=== PATIENT | male | born 1945 ===

== ENCOUNTER 2020-08-28 08:35 | Outpatient (CLI) | payer OTHER | END 2020-08-28 15:11 | disposition home or self-care (01) | LOC: SONOGRAMA 08:35 | PROVIDERS: ATTEND Internal Medicine Cardiovascular Disease | DX: K76.0 Fatty (change of) liver, not elsewhere classified (principal); R10.84 Generalized abdominal pain ==

== ENCOUNTER → 2021-09-27 | Outpatient (CLI) | payer OTHER | END | disposition home or self-care (01) | LOC: RAD 11:20 | PROVIDERS: ATTEND Internal Medicine Cardiovascular Disease | DX: M79.641 Pain in right hand (principal); M79.642 Pain in left hand; M10.9 Gout, unspecified; M12.9 Arthropathy, unspecified ==

== ENCOUNTER 2023-09-24 11:56 | Outpatient (CLI) | payer OTHER | END 2023-09-24 12:16 | disposition home or self-care (01) | LOC: MRI 11:56 | PROVIDERS: ATTEND Internal Medicine Cardiovascular Disease | DX: M12.9 Arthropathy, unspecified (principal); M10.9 Gout, unspecified | CPT/HCPCS: 73721 ==

== ENCOUNTER 2024-06-15 11:13 | Outpatient (CLI) | payer OTHER | END 2024-06-15 11:19 | disposition home or self-care (01) | LOC: RAD 11:13 | PROVIDERS: ATTEND Internal Medicine Cardiovascular Disease | DX: J44.9 Chronic obstructive pulmonary disease, unspecified (principal) ==